=== PATIENT | female | born 1960 | race Caucasian/White ===

== ENCOUNTER 2016-10-10 19:38 | Emergency (ER) | payer MEDICAID, MEDICARE ==
[2016-10-10] MEDS ORDERED: IOPAMIDOL 370 (76%) 100 ML VIAL IV ONE (19:39)
[2016-10-10 20:35] LABS: URINE BILIRUBIN NEGATIVE (NEGATIVE); URINE BLOOD NEGATIVE (NEGATIVE); URINE GLUCOSE (UA) NEGATIVE (NEGATIVE); URINE LEUKOCYTE ESTERASE NEGATIVE (NEGATIVE); URINE NITRITE NEGATIVE (NEGATIVE); URINE PROTEIN NEGATIVE (NEGATIVE); URINE UROBILINOGEN NORMAL (0-1 mg/dl)
[2016-10-10 20:51] LABS: URINE APPEARANCE SL CLOUDY; URINE COLOR YELLOW
[2016-10-10 20:52] LABS: URINE BACTERIA 1+; URINE RBC 0 /hpf; URINE WBC 0-2 /hpf
[2016-10-10] MEDS ORDERED: ONDANSETRON 4 MG/2ML 2 ML VIAL ONE (21:13)
[2016-10-10] MEDS ORDERED: SODIUM CHLORIDE 0.9% 1,000 ML ONE (21:13)
[2016-10-10] MEDS ORDERED: MORPHINE SULFATE 4 MG/ML SYRINGE ONE (21:13)
[2016-10-10 21:29] LABS: ABSOLUTE NEUTROPHIL COUNT 3.7 K/mm3 (1.8-7.7); BASO % 0.7 % (0.2-1.0); EOS # 0.2 (0.0-0.5); EOS % 2.8 % (0.9-2.9); HEMATOCRIT 39.1 % (37.0-47.0); HEMOGLOBIN 12.7 gm/l (12.0-16.0); IMM NEUT% 0.2 % (0-1); LYMPH # 1.5 (1.0-4.8); LYMPH % 25.8 % (15-45); MEAN CELL VOLUME 88.1 fl (81.0-99.0); MEAN CORPUSCULAR HEMOGLOBIN 28.6 pg (27.0-31.0); MEAN CORPUSCULAR HGB CONC 32.5 g/dl (33.0-37.0); MONO # 0.5 (0.0-0.8); NEUT % 62.5 % (43-75); PLATELET COUNT 194 K/mm3 (130-400); RED CELL DISTRIBUTION WIDTH 12.2 % (11.5-14.5)
[2016-10-10 22:01] LABS: ALB/GLOB RATIO 1.1 (>1.0); ALBUMIN 3.9 gm/dL (3.5-5.7); CALCIUM 9.5 mg/dL (8.6-10.3)
[2016-10-10] MEDS ORDERED: HYDROCODONE/ACETAMINOPHEN 5/325MG TABLET ONE (23:57)
--- NOTE | 2016-10-11 08:07 | CT ---
Name: FELIPA GRAVES Exam: CT abdomen pelvis with contrast Comparison: None History: Left upper quadrant pain Procedure: Helical CT using multidetector technique was applied to the abdomen and pelvis during intravenous administration of 100 cc Isovue-370. No oral contrast was given per ordering physician. An automated dose reduction technique was used to minimize patient radiation dose. Findings: CT abdomen (contrast enhanced): There is minimal basilar atelectasis. In the left lung base abutting the pleura, there is a 3.8 mm noncalcified pulmonary nodule. If this patient is at increased risk for developing lung cancer, repeat CT in 6 months is recommended. If not, repeat CT in one year is recommended. Heart is nonenlarged. There is no pericardial effusion. Liver, gallbladder, pancreas, spleen, adrenal glands, kidneys, aorta, IVC, portal vein, stomach and small bowel are within normal limits. There is no free air free fluid or adenopathy. Regional skeleton is within normal limits for the patient's age. CT pelvis (contrast enhanced): Bladder is normal. Uterus is absent. Left ovary is thought to remain and contains a tiny cyst. The right ovary is not identified. Small bowel, colon and appendix are within normal limits. There is no free air, free fluid or suspicious adenopathy. Impression: 1. No acute intra-abdominal process 2. Normal appendix 3. Surgically absent uterus. Right ovary is not identified. 4. 3.8 mm noncalcified nodule left lung base. Please see above comments. Note: Findings were transmitted to the emergency Department from [facility] at 2255 hours
== END 2016-10-11 00:01 | disposition home or self-care (01) ==
LOC: ED 19:38
DX: R10.9 Unspecified abdominal pain (principal); E78.5 Hyperlipidemia, unspecified; I10 Essential (primary) hypertension
CPT/HCPCS: 83690; 85025; 80053; 81001; 74177; 96375; 99284 ×2; 96374; J2270; J2405; J7030; Q9967; A9270

== ENCOUNTER 2016-11-23 09:16 | Emergency (ER) | payer MEDICARE ==
[2016-11-23] MEDS ORDERED: HYDROCODONE/ACETAMINOPHEN 5/325MG TABLET ONE (10:16)
[2016-11-23 11:29] LABS: ABSOLUTE NEUTROPHIL COUNT 5.1 K/mm3 (1.8-7.7); BASO % 0.5 % (0.2-1.0); EOS # 0.1 (0.0-0.5); EOS % 1.9 % (0.9-2.9); HEMATOCRIT 39.9 % (37.0-47.0); HEMOGLOBIN 13.1 gm/l (12.0-16.0); IMM NEUT% 0.3 % (0-1); LYMPH # 1.5 (1.0-4.8); MEAN CELL VOLUME 87.1 fl (81.0-99.0); MEAN CORPUSCULAR HEMOGLOBIN 28.6 pg (27.0-31.0); MEAN CORPUSCULAR HGB CONC 32.8 g/dl (33.0-37.0); MEAN PLATELET VOLUME 10.3 fl (7.4-10.4); MONO # 0.6 (0.0-0.8); MONO % 7.5 % (4-12); NEUT % 69.8 % (43-75); PLATELET COUNT 236 K/mm3 (130-400); RED CELL DISTRIBUTION WIDTH 12.1 % (11.5-14.5)
[2016-11-23 11:44] LABS: ALB/GLOB RATIO 1.2 (>1.0); ALBUMIN 4.3 gm/dL (3.5-5.7); CALCIUM 9.6 mg/dL (8.6-10.3); URIC ACID 5.2 mg/dL (2.3-7.6)
[2016-11-23 11:48] LABS: C-REACTIVE PROTEIN 1.5 mg/dl (<1.0)
--- NOTE | 2016-11-23 11:53 | RAD ---
KNEE- LEFT 4 OR MORE VIEWS COMPARISON: None. HISTORY: Left knee pain for one day. No injury. FINDINGS: Views: Left knee AP, internal rotation, external rotation, and lateral Alignment: Normal. Bones: No acute finding. Minimal osteophytes at the upper and lower poles of the patella. Joints: Normal. Soft tissues: Normal. IMPRESSION: 1. No acute finding. 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
--- NOTE | 2016-11-23 13:34 | US ---
DUPLX SCAN VEIN EXT UNI LT COMPARISON: None. HISTORY: Acute left knee and calf pain for 2 days. Technique: The veins of the left lower extremity were interrogated with real-time grayscale ultrasound, color Doppler, and spectral Doppler. Vessel compressibility and flow augmentation were assessed. FINDINGS: Deep venous thrombosis: None. Common femoral vein: Normal. Proximal femoral vein: Normal. Saphenous vein junction: Normal. Mid to distal femoral vein: Normal. Popliteal vein: Normal. Peroneal veins: Normal. Posterior tibial veins: Normal. IMPRESSION: 1. Normal study. No evidence of deep venous thrombosis of the left leg. Report was sent to the emergency department electronic medical record system, 11/23/2016 at 13:34
== END 2016-11-23 14:51 | disposition home or self-care (01) ==
LOC: ED 09:16
DX: M25.562 Pain in left knee (principal); I10 Essential (primary) hypertension
CPT/HCPCS: 86141; 85025; 80053; 84550; 73564; 99284; 36415; 93971; 99283; A9270